=== PATIENT | male | born 1985 | race Caucasian/White ===

== ENCOUNTER → 2016-11-20 | Day surgery (SDC) | payer MEDICAID, MEDICARE ==
[~2016-11-20] VITALS: Ht 177.8 cm; Wt 74.9 kg
[~2016-11-20] MED LIST: *ENALAPRILAT 1.25 MG/ML VIAL PERIprocedural Use ONLY ONE; *LABETALOL HCL 100 MG/20 ML VIAL PERIprocedural Use ONLY ONE; AMLO10TA2 PO; BUPIVACAINE/EPINEPHRINE 0.25% PF 30 ML VIAL ONE; BUPIVACAINE/EPINEPHRINE 0.5% 50 ML VIAL ONE; DO NOT ADM ANY ANTICOAGULANT DRUGS XX PRN; FAMOTIDINE 20 MG/2 ML VIAL ONE; HEPARIN SODIUM - SQ 10,000 UNITS/ML VIAL ONE; INSULIN HUMAN REGULAR 1,000 UNITS/10 ML VIAL SQ PRN; KETAMINE HCL 500 MG/5 ML VIAL ONE; LACTATED RINGER'S 1000 ML IV SCH; METO100T PO; METOPROLOL TARTRATE 100 MG TAB PO ONE; METOPROLOL TARTRATE 25 MG TAB PO PRN; MIDAZOLAM HCL 2 MG/2 ML VIAL ONE; NEXI40CA PO; ONDANSETRON HCL 4 MG/2 ML VIAL IV PUSH ONE; PHOS667C5 PO; PROPOFOL 200 MG/20 ML AMP IV ONE; SEVE800T PO; SODIUM CHLORID 0.9% 500 ML IV SCH; amLODIPine BESYLATE 5 MG TAB ONE; ePHEDrine/NS 50 MG/5 ML SYR IV ONE; fentaNYL CITRATE 250 MCG/5 ML AMP ONE
[2016-11-20 06:39] VITALS: BP 140/65; PULSE 62; RESP 18; TEMP 97.8; O2SAT 99
[2016-11-20] MEDS: ceFAZolin 1,000 MG/NS 100 ML IV SCH ×4 (07:51→07:52)
[2016-11-20 07:53] LABS: AUTOMATED NEUTROPHIL # 2.9 TH/MM3 (1.8-7.7); BASOPHIL % 0.9 % (0.0-2.0); EOSINOPHIL # 0.1 TH/MM3 (0-0.4); HEMATOCRIT 25.4 % (39.0-51.0); HEMO FLAGS DIFF FINAL; LYMPH % 24.7 % (9.0-44.0); LYMPHOCYTE # 1.1 TH/MM3 (1.0-4.8); MEAN CELL VOLUME 99.8 FL (80.0-100.0); MEAN CORPUSCULAR HEMOGLOBIN 34.9 PG (27.0-34.0); MONO % 8.6 % (0.0-8.0); NEUT % 63.8 % (16.0-70.0); PLATELET COUNT 213 TH/MM3 (150-450); RED BLOOD COUNT 2.55 MIL/MM3 (4.50-5.90); RED CELL DISTRIBUTION WIDTH 14.7 % (11.6-17.2); WHITE BLOOD COUNT 4.5 TH/MM3 (4.0-11.0)
[2016-11-20 08:04] LABS: BICARBONATE 23.8 MEQ/L (21.0-32.0); POTASSIUM 4.5 MEQ/L (3.5-5.1)
[2016-11-20 11:38] VITALS: BP 176/69; PULSE 69; RESP 18; TEMP 97; O2SAT 98
--- NOTE | 2016-11-20 21:18 | MP ---
cc: SAVANNAH YAN DATE OF SURGERY 11/20/2016 PREOPERATIVE DIAGNOSIS Chronic kidney disease with marnie aneurysmal, painful left brachiocephalic AV fistula - needs new AV access. POSTOPERATIVE DIAGNOSIS Chronic kidney disease with marnie aneurysmal, painful left brachiocephalic AV fistula - needs new AV access. PROCEDURE Right radiocephalic AV fistula creation. SURGEON Rigoberto Yan MD DIRECTOR REHABILITATION PROGRAM SUZIE Valenzuela ANESTHESIA Local MAC. DESCRIPTION OF PROCEDURE With the patient in the supine position and under IV sedation, the right arm was prepped with Betadine and draped in a sterile fashion. Appropriate IV antibiotic prophylaxis was administered and following a protocol time-out, the skin and subcutaneous tissue proposed incisional area infiltrated with 0.5% Marcaine with epinephrine. A vertical 3 cm incision was performed along the distal lateral volar forearm through which the cephalic vein and radial artery were circumferentially mobilized. The cephalic vein was ligated distally with 4-0 silk, transected proximal to the ligature, spatulated on end, flushed with heparinized saline and occluded with a Yasargil clip. The radial artery was occluded proximally and distally with Yasargil clips. A vertical 4-mm arteriotomy was performed along the anterolateral surface. The artery was flushed proximally and distally with heparinized saline. An end-to-side anastomosis was accomplished between the vein and arteriotomy with continuous 7-0 Prolene. The occluding Yasargil clips were removed reestablishing pulsatile flow within the radial artery as well as into the cephalic vein. Strict hemostasis was assured. The incision was closed with interrupted subcutaneous 4-0 Monocryl, continuous subcuticular 5-0 Monocryl. Reinforced with Steri-Strips and covered with sterile gauze. No operative complications. The patient returned to the recovery room in stable condition having tolerated the procedure well. Savannah Yan MD JTS/KK /5:43 PM /9:06 PM
== END | disposition home or self-care (01) ==
LOC: HSDC 06:04
PROVIDERS: ATTEND Surgery Vascular Surgery
DX: N18.6 End stage renal disease (principal); I12.0 Hypertensive chronic kidney disease with stage 5 chronic kidney disease or end stage renal disease; Z99.2 Dependence on renal dialysis
CPT/HCPCS: 01844; 36818; 80048; 85025; J0690; J1644; J2250; J2405; J3010

== ENCOUNTER → 2017-08-27 | Day surgery (SDC) | payer MEDICARE ==
[~2017-08-27] VITALS: Ht 175.3 cm; Wt 75.7 kg
[~2017-08-27] MED LIST changes: -*ENALAPRILAT 1.25 MG/ML VIAL PERIprocedural Use ONLY ONE; -*LABETALOL HCL 100 MG/20 ML VIAL PERIprocedural Use ONLY ONE; +*morphine SULFATE 8 MG/ML PERIprocedure ONLY ONE; +ACETAMINOPHEN/HYDROcodone 325 MG/5 MG TAB PO PRN; +BUPIVACAINE/EPINEPHRINE 0.25% 50 ML VIAL ONE; -BUPIVACAINE/EPINEPHRINE 0.25% PF 30 ML VIAL ONE; +CHLORHEXIDINE GLUCONATE 2 % 1 PACK (2 CLOTHS) TOPICAL PRN; +DO NOT ADM ANY ANTICOAGULANT DRUGS PRN; -DO NOT ADM ANY ANTICOAGULANT DRUGS XX PRN; +LACTATED RINGER'S 1000 ML IV PRN; -LACTATED RINGER'S 1000 ML IV SCH; +LIDOCAINE HCL 1% PF 5 ML AMPULE OTHER ONE; -METOPROLOL TARTRATE 100 MG TAB PO ONE; -ONDANSETRON HCL 4 MG/2 ML VIAL IV PUSH ONE; +POVIDONE IODINE 5% (ANTISEPSIS KIT) 4 APPLICATIONS EACH NARE PRN; +PROPOFOL 200 MG/20 ML AMP ONE; +SODIUM CHLORID 0.9% 500 ML INJ 500 ML IV ONE; +SODIUM CHLORID 0.9% 500 ML IV PRN; -SODIUM CHLORID 0.9% 500 ML IV SCH; -amLODIPine BESYLATE 5 MG TAB ONE; +ceFAZolin 1,000 MG/NS 100 ML IV SCH; -ePHEDrine/NS 50 MG/5 ML SYR IV ONE; -fentaNYL CITRATE 250 MCG/5 ML AMP ONE
[2017-08-27 10:23] LABS: AUTOMATED NEUTROPHIL # 3.7 TH/MM3 (1.8-7.7); BASOPHIL % 0.2 % (0.0-2.0); EOSINOPHIL # 0.1 TH/MM3 (0-0.4); EOSINOPHIL % 2.1 % (0.0-4.0); HEMATOCRIT 22.8 % (39.0-51.0); HEMO FLAGS DIFF FINAL; LYMPH % 16.8 % (9.0-44.0); LYMPHOCYTE # 0.9 TH/MM3 (1.0-4.8); MEAN CELL VOLUME 101.7 FL (80.0-100.0); MEAN CORPUSCULAR HEMOGLOBIN 35.3 PG (27.0-34.0); MEAN CORPUSCULAR HGB CONC 34.7 % (32.0-36.0); NEUT % 72.9 % (16.0-70.0); PLATELET COUNT 175 TH/MM3 (150-450); RED BLOOD COUNT 2.24 MIL/MM3 (4.50-5.90); RED CELL DISTRIBUTION WIDTH 13.9 % (11.6-17.2); WHITE BLOOD COUNT 5.1 TH/MM3 (4.0-11.0)
[2017-08-27 10:50] LABS: BICARBONATE 29.4 MEQ/L (21.0-32.0); POTASSIUM 4.5 MEQ/L (3.5-5.1)
[2017-08-27 16:50] VITALS: BP 193/104; PULSE 65; RESP 18; TEMP 98.3; O2SAT 98
--- NOTE | 2017-08-27 22:45 | MP ---
cc: SAVANNAH CHADWICK DATE OF SURGERY 08/27/17 PREOPERATIVE DIAGNOSIS Inadequately matured right radial cephalic AV fistula secondary to cephalic venous stricture. POSTOPERATIVE DIAGNOSIS Inadequately matured right radial cephalic AV fistula secondary to cephalic venous stricture. PROCEDURE Left radiocephalic AV fistula with bovine patch angioplasty. SURGEON Stevenson Chadwick MD SET UP [employer]ACH[employer] SUZIE Garcia ANESTHESIA Local MAC DESCRIPTION OF PROCEDURE With the patient in the supine position and under IV sedation, the right upper extremity was prepped with Betadine and draped in a sterile fashion. One gram of Ancef was administered intravenously. Following a protocol time-out, the skin and subcutaneous tissue surrounding the arterialized cephalic vein proximal to the arteriovenous anastomosis was infiltrated with 1% Xylocaine with epinephrine. A vertical incision was performed. The brachial artery proximal and distal to the venous anastomosis and the cephalic vein several centimeters proximal to the anastomosis were circumferentially mobilized. The vein was occluded distally with a Yasargil clip and the radial artery proximal and distal to the arterial anastomosis with Yasargil clip. A vertical venotomy was performed from the english of the venous anastomosis across a diffuse almost completely occlusive stricture. The venotomy was extended proximally to normal diameter non-diseased non-strictured vein. The proximal and distal system was flushed with heparinized saline. The intimal hyperplasia creating the occlusion was removed completely. A bovine patch was then secured to the venotomy incision with continuous 6-0 Prolene. The occluding Yasargil clips were removed reestablishing pulsatile flow within the radial artery as well as into the arterialized cephalic vein. Strict hemostasis was achieved. The incision was closed with interrupted subcutaneous 4-0 Monocryl, continuous subcuticular 5-0 Monocryl, reinforced with Steri-Strips and covered with sterile gauze. Instrument, needle and sponge count were correct x2. There were no operative complications. The patient returned to the recovery room in stable condition having tolerated procedure well. MD ABHINAV Orozco/ /6:38 PM /10:29 PM
== END | disposition home or self-care (01) ==
LOC: HSDC 09:01
PROVIDERS: ATTEND Surgery Vascular Surgery
DX: I77.0 Arteriovenous fistula, acquired (principal); I12.0 Hypertensive chronic kidney disease with stage 5 chronic kidney disease or end stage renal disease; N18.6 End stage renal disease; K21.9 Gastro-esophageal reflux disease without esophagitis; F17.200 Nicotine dependence, unspecified, uncomplicated
CPT/HCPCS: 01926; 36902; 80048; 85025; J0690; J1644; J2250; J2270; J3010; J7040